=== PATIENT | male | born 1960 | race Caucasian/White ===

== ENCOUNTER 2017-10-19 07:59 | Emergency (ER) | payer BC ==
[~2017-10-19] VITALS: Ht 182.9 cm; Wt 81.4 kg
[2017-10-19 09:54] VITALS: BP 134/62
== END 2017-10-19 09:56 | disposition home or self-care (01) ==
LOC: EME 07:59
PROC: 3E0234Z Introduction of Serum, Toxoid and Vaccine into Muscle, Percutaneous Approach (ICD-10-PCS; principal; 2017-10-19)
DX: Z20.3 Contact with and (suspected) exposure to rabies (principal); Z23 Encounter for immunization
CPT/HCPCS: 99281; 99283